=== PATIENT | female | born 1980 | race Caucasian/White ===

== ENCOUNTER 2018-10-21 13:07 | Emergency (ER) | payer MEDICAID ==
[~2018-10-21] VITALS: Ht 160 cm; Wt 88.5 kg
[2018-10-21 13:15] VITALS: BP 154/78; PULSE 69; RESP 18; Ht 160 cm; Wt 88.5 kg
[2018-10-21] MEDS ORDERED: KETOROLAC 60 MG INJ IM STA (14:34)
[2018-10-21] MEDS ORDERED: MED4DP PO (14:36)
[2018-10-21] MEDS ORDERED: CYCL10TA7 PO (14:36)
[2018-10-21] MEDS ORDERED: NAPR-985 PO (14:36)
[2018-10-21] MEDS ORDERED: HYDR-4011 PO (14:36)
[2018-10-21] MEDS ORDERED: DIAZEPAM 5 MG TAB PO ONE (15:00)
[2018-10-21] MEDS ORDERED: DEXAMETHASONE 10 MG/ML 1 ML INJ IM ONE (15:00)
--- NOTE | 2018-10-21 15:37 | ERD ---
ER Documentation Chief Complaint Chief Complaint left side lower back pain radiating to lt leg x 3 days HPI 38-year-old female presenting with back pain to the left lower back extending down her left leg. Patient is been going for the last 3 days. Denies any traumatic injuries. Took ibuprofen with mild alleviation. Denies dysuria. Denies fevers. Pain is worse with movement. Denies any numbness or tingling. Denies change in urination or bowel movement. Denies medical problems. NKDA. Surgical history . Social history denies ROS All systems reviewed and are negative except as per history of present illness. Medications Home Meds Active Scripts Methylprednisolone* (Medrol* DOSE PACK) 4 Mg/Dose-Pack Tab.ds.pk, 4 MG PO . DIRECTED, #1 PACKET Prov:ALMA ROSA SANTIAGO PA-C 10/21/18 Cyclobenzaprine Hcl* (Cyclobenzaprine Hcl*) 10 Mg Tablet, 10 MG PO TID, #15 TAB Prov:ALMA ROSA SANTIAGO PA-C 10/21/18 Naproxen* (Naprosyn*) 500 Mg Tablet, 500 MG PO BID PRN for PAIN AND/OR INFLAMMATION, #30 TAB Prov:ALMA ROSA SANTIAGO PA-C 10/21/18 Hydrocodone/Acetaminophen ([place] 5-325 Tablet) 1 Each Tablet, 1 TAB PO Q6H PRN for PAIN, #7 TAB Prov:ALMA ROSA SANTIAGO PA-C 10/21/18 Allergies Allergies: Coded Allergies: No Known Allergy (Unverified , 10/21/18) PMhx/Soc Medical and Surgical Hx: pt denies Medical Hx, pt denies Surgical Hx Hx Alcohol Use: No Hx Substance Use: No Hx Tobacco Use: No Smoking Status: Never smoker FmHx Family History: No diabetes, No coronary disease, No other Physical Exam Vitals Vital Signs Date Temp Pulse Resp B/P (MAP) Pulse Ox O2 O2 Flow FiO2 Time Delivery Rate 10/21/18 98.1 69 18 154/78 97 13:15 (103) Physical Exam GENERAL: The patient is well-appearing, well-nourished, in no acute distress CHEST: Clear to auscultation bilaterally. There are no rales, wheezes or rhonchi. HEART: Regular rate and rhythm. No murmurs, clicks, rubs or gallops. BACK: No midline or flank tenderness. No CVA tenderness EXTREMITIES: Equal pulses bilaterally. There is no peripheral clubbing, cyanosis or edema. No focal swelling or erythema. Full range of motion. G rossly neurovascularly intact. NEUROLOGIC: Alert and oriented. Cranial nerves II through XII intact. Motor strength in all 4 extremities with 5 out of 5 strength. Sensation grossly intact. Normal speech and gait. SKIN: There is no apparent rash or petechiae. The skin is warm and dry. Results 24 hrs Laboratory Tests Test 10/21/18 14:56 POC Beta HCG, Qualitative NEGATIVE Current Medications Medications Dose Sig/Ag Start Time Status Last (Trade) Ordered Route PRN Stop Time Admin Dose Reason Admin Diazepam 5 mg ONCE ONCE 10/21/18 DC 10/21/18 (Valium) PO 15:00 14:51 10/21/18 15:01 Ketorolac 60 mg ONCE STAT 10/21/18 DC 10/21/18 Tromethamine IM 14:34 15:00 (Toradol) 10/21/18 14:35 10 mg ONCE ONCE 10/21/18 DC 10/21/18 Dexamethasone IM 15:00 14:51 (Decadron) 10/21/18 15:01 Procedures/MDM ER course: Toradol, Valium and Decadron given in ED. MDM: 38-year-old female presenting with back pain. Patient has muscular skeletal strain associated with sciatica. I have low suspicion for acute abdominal emergency radiating to the back. A low suspicion for acute fracture dislocation. I have low suspicion for nerve deficit. I have low suspicion for cauda equina, discitis or epidural abscess. I do not feel blood work or imaging is indicated. Patient is discharged with strict ER precautions and supportive medications. Patient is told if symptoms change or worsen to return immediately to the ER. All questions answered at discharge Departure Diagnosis: Primary Impression: Back pain Condition: Stable Patient Instructions: Back Pain W/ Sciatica Referrals: COMMUNITY CLINICS YOU HAVE RECEIVED A MEDICAL SCREENING EXAM AND THE RESULTS INDICATE THAT YOU DO NOT HAVE A CONDITION THAT REQUIRES URGENT TREATMENT IN THE EMERGENCY DEPARTMENT. FURTHER EVALUATION AND TREATMENT OF YOUR CONDITION CAN WAIT UNTIL YOU ARE SEEN IN YOUR DOCTORS OFFICE WITHIN THE NEXT 1-2 DAYS. IT IS YOUR RESPONSIBILITY TO MAKE AN APPOINTMENT FOR FOLOW-UP CARE. IF YOU HAVE A PRIMARY DOCTOR --you should call your primary doctor and schedule an appointment IF YOU DO NOT HAVE A PRIMARY DOCTOR YOU CAN CALL OUR PHYSICIAN REFERRAL HOTLINE AT IF YOU CAN NOT AFFORD TO SEE A PHYSICIAN YOU CAN CHOSE FROM THE FOLLOWING [facility] CL[facility]ICS [facility] [address] [facility] [address] [facility] [facility] [address] [facility] [address] [facility] [address] [facility] [address] [facility]. [facility]. [address] Additional Instructions: FOLLOW UP WITH YOUR PRIMARY CARE PHYSICIAN TOMORROW.Return to this facility if you are not improving as expected. ALMA ROSA SANTIAGO PA-C Oct 21, 2018 15:37
== END 2018-10-21 15:38 | disposition home or self-care (01) ==
LOC: FTE 13:07
DX: M54.5 Low back pain (principal)
CPT/HCPCS: 81025; 96372; J1100; J1885; Z7502; Z7610